=== PATIENT | female | born 1995 | race Hispanic/Latino ===

== ENCOUNTER 2018-11-24 19:20 | Emergency (ER) | payer MEDICAID, OTHER | END 2018-11-24 20:16 | disposition left against medical advice (07) | LOC: EDH 19:20 | DX: R03.0 Elevated blood-pressure reading, without diagnosis of hypertension (principal); J45.909 Unspecified asthma, uncomplicated ==

== ENCOUNTER 2022-05-09 23:46 | Emergency (ER) | payer OTHER ==
[~2022-05-09] VITALS: Ht 152.4 cm; Wt 89.1 kg
[2022-05-10] MEDS ORDERED: LACTATED RINGERS 1000ML 1,000 ML IV ONE (00:30)
[2022-05-10 00:36] LABS: APPEARANCE,URINE CLEAR (CLEAR); BILIRUBIN,URINE NEGATIVE (NEGATIVE); COLOR,URINE YELLOW (YELLOW); GLUCOSE, URINE (UA) NEGATIVE (NEGATIVE); KETONES,URINE NEGATIVE (NEGATIVE); LEUKOCYTE ESTERASE ,URINE NEGATIVE Leu/uL (NEGATIVE); NITRATE,URINE NEGATIVE (NEGATIVE); OCCULT BLOOD,URINE NEGATIVE (NEGATIVE); PROTEIN,URINE 10 mg/dL (NEGATIVE); UROBILINOGEN,URINE 3 mg/dL (0.2-1.0)
[2022-05-10 00:40] LABS: BASOPHILS % (AUTO) 0.3 % (0.0-5.0); EOSINOPHILS % (AUTO) 1.2 % (0.0-8.0); HEMATOCRIT 33.9 % (36-48); LYMPHOCYTES % (AUTO) 32.4 % (21.0-51.0); MEAN CORPUSCULAR HEMOGLOBIN 23.9 pg (27.0-33.0); MEAN CORPUSCULAR HGB CONC 31.3 g/dL (32.0-36.0); MEAN CORPUSCULAR VOLUME 76.4 fL (79-99); MONOCYTES % (AUTO) 6.7 % (3.0-13.0); NEUTROPHILS % (AUTO) 59.2 % (40.0-77.0); PLATELET COUNT (AUTO) 348 K/uL (130-400); RED BLOOD CELL COUNT(AUTO) 4.44 MIL/uL (4.00-5.50); RED CELL DISTRIBUTION WIDTH 14.7 % (11.0-15.5); WHITE BLOOD COUNT (AUTO) 11.9 K/uL (4.8-10.8)
[2022-05-10 00:43] LABS: CREATININE 0.6 mg/dL (0.5-1.5); POTASSIUM 4.4 mmol/L (3.5-5.1)
[2022-05-10 01:09] LABS: ALBUMIN 3.5 g/dL (3.5-5.0); TOTAL PROTEIN, SERUM 7.3 g/dL (6.0-8.3)
[2022-05-10] MEDS ORDERED: LIDOCAINE HCL 2% VISCOUS 15 ML UDCUP PO ONE (02:30)
[2022-05-10] MEDS ORDERED: MAG/ALUM/SIMETH 30 ML UDCUP PO ONE (02:30)
[2022-05-10] MEDS ORDERED: ONDA-104 PO (02:37)
[2022-05-10 02:57] VITALS: BP 126/76
== END 2022-05-10 03:06 | disposition home or self-care (01) ==
LOC: EDH 23:46
DX: O20.0 Threatened abortion (principal); K80.20 Calculus of gallbladder without cholecystitis without obstruction; Z3A.08 8 weeks gestation of pregnancy; Z98.890 Other specified postprocedural states
CPT/HCPCS: 99284; 80053; 84702; 83690; 85025; 86850; 86900; 86901; 81003; 36415; 96360; 76705; 76801; J7120

== ENCOUNTER 2022-06-07 14:55 | Emergency (ER) | payer OTHER ==
[~2022-06-07] VITALS: Ht 172.7 cm; Wt 85.7 kg
[~2022-06-07 14:55] MED LIST: ONDA-104 PO
[2022-06-07] MEDS ORDERED: 0.9%NACL 1000ML 1,000 ML IV ONE (15:30)
[2022-06-07 15:46] LABS: BASOPHILS % (AUTO) 0.2 % (0.0-5.0); EOSINOPHILS % (AUTO) 0.8 % (0.0-8.0); HEMATOCRIT 33.4 % (36-48); LYMPHOCYTES % (AUTO) 14.7 % (21.0-51.0); MEAN CORPUSCULAR HEMOGLOBIN 24.5 pg (27.0-33.0); MEAN CORPUSCULAR HGB CONC 32.6 g/dL (32.0-36.0); MEAN CORPUSCULAR VOLUME 75.2 fL (79-99); NEUTROPHILS % (AUTO) 78.9 % (40.0-77.0); PLATELET COUNT (AUTO) 283 K/uL (130-400); RED BLOOD CELL COUNT(AUTO) 4.44 MIL/uL (4.00-5.50); RED CELL DISTRIBUTION WIDTH 14.8 % (11.0-15.5); WHITE BLOOD COUNT (AUTO) 12.4 K/uL (4.8-10.8)
[2022-06-07 15:55] LABS: CREATININE 0.5 mg/dL (0.5-1.5); POTASSIUM 3.6 mmol/L (3.5-5.1)
[2022-06-07 16:21] LABS: ALBUMIN 3.1 g/dL (3.5-5.0); TOTAL PROTEIN, SERUM 7.4 g/dL (6.0-8.3)
[2022-06-07 17:13] LABS: APPEARANCE,URINE CLOUDY (CLEAR); BILIRUBIN,URINE NEGATIVE (NEGATIVE); COLOR,URINE YELLOW (YELLOW); GLUCOSE, URINE (UA) NEGATIVE (NEGATIVE); KETONES,URINE NEGATIVE (NEGATIVE); LEUKOCYTE ESTERASE ,URINE 500 Leu/uL (NEGATIVE); NITRATE,URINE NEGATIVE (NEGATIVE); OCCULT BLOOD,URINE NEGATIVE (NEGATIVE); PROTEIN,URINE 20 mg/dL (NEGATIVE); UROBILINOGEN,URINE 0.2 mg/dL (0.2-1.0)
[2022-06-07 17:15] LABS: HCG,QUALITATIVE URINE POSITIVE (NEGATIVE)
[2022-06-07 17:17] LABS: BACTERIA,URINE RARE /HPF (None Seen); MUCUS,URINE FEW LPF (None Seen); SQUAMOUS EPITHELIAL CELL,UR FEW /HPF (0-2); WBC,URINE 51-100 /HPF (0-1); YEAST,URINE BUDDING RARE /HPF (None Seen)
[2022-06-07 17:45] VITALS: BP 124/72
== END 2022-06-07 17:55 | disposition home or self-care (01) ==
LOC: EDH 14:55
DX: O20.0 Threatened abortion (principal); Z79.899 Other long term (current) drug therapy; Z3A.12 12 weeks gestation of pregnancy
CPT/HCPCS: 99284; 96360; 76801; 80053; 84702; 85025; 87088; 87797; 86701; 87390; 87486; 81001; 81025; 36415; J7030

== ENCOUNTER 2022-07-13 21:03 | Emergency (ER) | payer OTHER ==
[~2022-07-13] VITALS: Ht 152.4 cm; Wt 84.4 kg
[2022-07-13 21:44] LABS: BASOPHILS % (AUTO) 0.2 % (0.0-5.0); EOSINOPHILS % (AUTO) 0.8 % (0.0-8.0); HEMATOCRIT 32.8 % (36-48); LYMPHOCYTES % (AUTO) 21.3 % (21.0-51.0); MEAN CORPUSCULAR HEMOGLOBIN 24.3 pg (27.0-33.0); MEAN CORPUSCULAR HGB CONC 31.7 g/dL (32.0-36.0); MEAN CORPUSCULAR VOLUME 76.6 fL (79-99); NEUTROPHILS % (AUTO) 71.4 % (40.0-77.0); PLATELET COUNT (AUTO) 327 K/uL (130-400); RED BLOOD CELL COUNT(AUTO) 4.28 MIL/uL (4.00-5.50); RED CELL DISTRIBUTION WIDTH 14.7 % (11.0-15.5); WHITE BLOOD COUNT (AUTO) 10.2 K/uL (4.8-10.8)
[2022-07-13 21:56] LABS: APPEARANCE,URINE CLOUDY (CLEAR); BILIRUBIN,URINE NEGATIVE (NEGATIVE); COLOR,URINE YELLOW (YELLOW); GLUCOSE, URINE (UA) NEGATIVE (NEGATIVE); KETONES,URINE 5 mg/dL (NEGATIVE); LEUKOCYTE ESTERASE ,URINE NEGATIVE Leu/uL (NEGATIVE); NITRATE,URINE NEGATIVE (NEGATIVE); OCCULT BLOOD,URINE NEGATIVE (NEGATIVE); PH,URINE 6.5 (5.0-8.0); PROTEIN,URINE 20 mg/dL (NEGATIVE); UROBILINOGEN,URINE 3 mg/dL (0.2-1.0)
[2022-07-13 22:03] LABS: BACTERIA,URINE FEW /HPF (None Seen); MUCUS,URINE MOD LPF (None Seen); SQUAMOUS EPITHELIAL CELL,UR MOD /HPF (0-2)
[2022-07-13 22:20] LABS: ALBUMIN 2.8 g/dL (3.5-5.0); CREATININE 0.6 mg/dL (0.5-1.5); POTASSIUM 3.5 mmol/L (3.5-5.1); TOTAL PROTEIN, SERUM 7.6 g/dL (6.0-8.3)
[2022-07-13] MEDS ORDERED: ACETAMINOPHEN 325 MG TAB PO ONE (23:30)
[2022-07-13 23:58] VITALS: BP 95/65
== END 2022-07-14 | disposition home or self-care (01) ==
LOC: EDH 21:03
DX: O20.0 Threatened abortion (principal); R10.9 Unspecified abdominal pain; Z3A.18 18 weeks gestation of pregnancy; Z59.01 Sheltered homelessness
CPT/HCPCS: 36415; 76805; 80053; 81001; 84702; 84703; 85025; 86900; 86901

== ENCOUNTER 2022-10-23 16:05 | Emergency (ER) | payer OTHER ==
[~2022-10-23] VITALS: Ht 152.4 cm; Wt 87.1 kg
[2022-10-23 16:39] LABS: BASOPHILS % (AUTO) 0.2 % (0.0-5.0); EOSINOPHILS % (AUTO) 0.6 % (0.0-8.0); LYMPHOCYTES % (AUTO) 24.9 % (21.0-51.0); MONOCYTES % (AUTO) 5.8 % (3.0-13.0); NEUTROPHILS % (AUTO) 67.9 % (40.0-77.0); PLATELET COUNT (AUTO) 345 K/uL (130-400); RED CELL DISTRIBUTION WIDTH 15.3 % (11.0-15.5); WHITE BLOOD COUNT (AUTO) 8.9 K/uL (4.8-10.8)
[2022-10-23 16:46] LABS: CREATININE 0.6 mg/dL (0.5-1.5); POTASSIUM 3.8 mmol/L (3.5-5.1)
[2022-10-23 16:51] LABS: ALBUMIN 2.5 g/dL (3.5-5.0); TOTAL PROTEIN, SERUM 7.3 g/dL (6.0-8.3)
[2022-10-23 17:00] LABS: APPEARANCE,URINE CLOUDY (CLEAR); BILIRUBIN,URINE NEGATIVE (NEGATIVE); COLOR,URINE YELLOW (YELLOW); GLUCOSE, URINE (UA) NEGATIVE (NEGATIVE); KETONES,URINE NEGATIVE (NEGATIVE); LEUKOCYTE ESTERASE ,URINE 75 Leu/uL (NEGATIVE); NITRATE,URINE NEGATIVE (NEGATIVE); OCCULT BLOOD,URINE NEGATIVE (NEGATIVE); PROTEIN,URINE 20 mg/dL (NEGATIVE); UROBILINOGEN,URINE 0.2 mg/dL (0.2-1.0)
[2022-10-23 17:12] LABS: BACTERIA,URINE MOD /HPF (None Seen); MUCUS,URINE MANY LPF (None Seen); SQUAMOUS EPITHELIAL CELL,UR MOD /HPF (0-2)
[2022-10-23] MEDS ORDERED: POTASSIUM CHLORIDE 10% ELIXIR 20 MEQ/15 ML UDCUP PO PRN (17:30)
[2022-10-23] MEDS ORDERED: POTASSIUM CHLORIDE 20MEQ/100ML 100 ML IV PRN (17:30)
[2022-10-23] MEDS ORDERED: KCL 20 MEQ ERTAB PO PRN (17:30)
[2022-10-23] MEDS ORDERED: MAGNESIUM 2GM PREMIX 50ML 50 ML IV PRN (17:30)
[2022-10-23] MEDS ORDERED: ACETAMINOPHEN 500 MG TABLET PO ONE (19:30)
[2022-10-23] MEDS: CEFTRIAXONE 500MG VIAL IVPB SCH ×2 (19:30→19:40)
[2022-10-23] MEDS ORDERED: CEPH500B PO (19:32)
[2022-10-23] MEDS ORDERED: CEFTRIAXONE 500MG VIAL IM STA (19:46)
[2022-10-23 20:13] VITALS: BP 122/78
== END 2022-10-23 20:14 | disposition home or self-care (01) ==
LOC: EDH 16:05
DX: O23.43 Unspecified infection of urinary tract in pregnancy, third trimester (principal); N39.0 Urinary tract infection, site not specified; O99.013 Anemia complicating pregnancy, third trimester; O99.513 Diseases of the respiratory system complicating pregnancy, third trimester; J45.909 Unspecified asthma, uncomplicated; Z3A.33 33 weeks gestation of pregnancy
CPT/HCPCS: 99283; 80053; 85025; 86850; 86900; 86901; 87088; 81001; 36415; 96372; J0696 ×2

== ENCOUNTER 2022-11-25 07:44 | Observation (INO) | payer OTHER ==
[~2022-11-25] VITALS: Ht 152.4 cm; Wt 90.7 kg
[~2022-11-25 07:44] MED LIST changes: +CEPH500B PO
[2022-11-25 07:48] VITALS: BP 118/82
[2022-11-25 09:15] LABS: AMPHET/METH SCREEN,URINE NEGATIVE (NEGATIVE); BARBITURATE SCREEN, URINE NEGATIVE (NEGATIVE); BENZODIAZEPINES SCREEN,URINE NEGATIVE (NEGATIVE); CANNABINOID SCREEN,URINE NEGATIVE (NEGATIVE); COCAINE SCREEN,URINE NEGATIVE (NEGATIVE); OPIATE SCREEN,URINE NEGATIVE (NEGATIVE); PHENCYCLIDINE SCREEN,URINE NEGATIVE (NEGATIVE)
[2022-11-25 09:23] LABS: APPEARANCE,URINE CLEAR (CLEAR); BILIRUBIN,URINE NEGATIVE (NEGATIVE); COLOR,URINE YELLOW (YELLOW); GLUCOSE, URINE (UA) NEGATIVE (NEGATIVE); KETONES,URINE NEGATIVE (NEGATIVE); LEUKOCYTE ESTERASE ,URINE 75 Leu/uL (NEGATIVE); NITRATE,URINE NEGATIVE (NEGATIVE); OCCULT BLOOD,URINE NEGATIVE (NEGATIVE); PROTEIN,URINE 30 mg/dL (NEGATIVE); UROBILINOGEN,URINE 3 mg/dL (0.2-1.0)
[2022-11-25 09:59] LABS: BACTERIA,URINE RARE /HPF (None Seen); MUCUS,URINE FEW LPF (None Seen); SQUAMOUS EPITHELIAL CELL,UR FEW /HPF (0-2); TRANSITIONAL EPI CELLS,URINE RARE /HPF (None Seen)
== END 2022-11-25 10:22 | disposition home or self-care (01) ==
LOC: EDH 07:44 → LDH 07:59
PROVIDERS: ADMIT Internal Medicine; ATTEND Internal Medicine
DX: O26.893 Other specified pregnancy related conditions, third trimester (principal); R10.9 Unspecified abdominal pain; O36.8130 Decreased fetal movements, third trimester, not applicable or unspecified; Z3A.37 37 weeks gestation of pregnancy; Z79.899 Other long term (current) drug therapy
CPT/HCPCS: 59025; 80305; 87088; 81001; G0378 ×2; G0379

== ENCOUNTER 2022-12-11 15:57 | Observation (INO) | payer OTHER ==
[~2022-12-11] VITALS: Ht 152.4 cm; Wt 89.4 kg
[2022-12-11 16:00] VITALS: BP 132/81
[2022-12-11 16:41] LABS: APPEARANCE,URINE CLOUDY (CLEAR); BILIRUBIN,URINE NEGATIVE (NEGATIVE); COLOR,URINE YELLOW (YELLOW); GLUCOSE, URINE (UA) NEGATIVE (NEGATIVE); KETONES,URINE NEGATIVE (NEGATIVE); LEUKOCYTE ESTERASE ,URINE 500 Leu/uL (NEGATIVE); NITRATE,URINE NEGATIVE (NEGATIVE); PROTEIN,URINE 30 mg/dL (NEGATIVE)
[2022-12-11 17:45] LABS: BACTERIA,URINE RARE /HPF (None Seen); MUCUS,URINE FEW LPF (None Seen); SQUAMOUS EPITHELIAL CELL,UR MOD /HPF (0-2)
[2022-12-11 17:46] LABS: OCCULT BLOOD,URINE SMALL (NEGATIVE)
== END 2022-12-11 17:50 | disposition home or self-care (01) ==
LOC: EDH 15:57 → LDH 15:58 → EDH 16:07
PROVIDERS: ADMIT Obstetrics & Gynecology; ATTEND Obstetrics & Gynecology
DX: O26.893 Other specified pregnancy related conditions, third trimester (principal); R10.9 Unspecified abdominal pain; Z3A.39 39 weeks gestation of pregnancy
CPT/HCPCS: 87088; 81001; G0378 ×2; G0379

== ENCOUNTER 2022-12-16 12:40 | Observation (INO) | payer OTHER ==
[~2022-12-16] VITALS: Ht 152.4 cm; Wt 89.8 kg
[2022-12-16 12:43] VITALS: BP 117/76
[2022-12-16 13:59] LABS: APPEARANCE,URINE CLEAR (CLEAR); BILIRUBIN,URINE NEGATIVE (NEGATIVE); COLOR,URINE YELLOW (YELLOW); GLUCOSE, URINE (UA) NEGATIVE (NEGATIVE); KETONES,URINE NEGATIVE (NEGATIVE); LEUKOCYTE ESTERASE ,URINE 500 Leu/uL (NEGATIVE); NITRATE,URINE NEGATIVE (NEGATIVE); OCCULT BLOOD,URINE NEGATIVE (NEGATIVE); PROTEIN,URINE 10 mg/dL (NEGATIVE); UROBILINOGEN,URINE 0.2 mg/dL (0.2-1.0)
[2022-12-16 14:06] LABS: BACTERIA,URINE RARE /HPF (None Seen); MUCUS,URINE RARE LPF (None Seen); SQUAMOUS EPITHELIAL CELL,UR MOD /HPF (0-2); TRANSITIONAL EPI CELLS,URINE RARE /HPF (None Seen)
[2022-12-16 21:47] LABS: AMPHET/METH SCREEN,URINE NEGATIVE (NEGATIVE); BARBITURATE SCREEN, URINE NEGATIVE (NEGATIVE); BENZODIAZEPINES SCREEN,URINE NEGATIVE (NEGATIVE); CANNABINOID SCREEN,URINE NEGATIVE (NEGATIVE); COCAINE SCREEN,URINE NEGATIVE (NEGATIVE); OPIATE SCREEN,URINE NEGATIVE (NEGATIVE); PHENCYCLIDINE SCREEN,URINE NEGATIVE (NEGATIVE)
== END 2022-12-16 14:40 | disposition home or self-care (01) ==
LOC: EDH 12:40 → LDH 12:41 → EDH 12:46
PROVIDERS: ADMIT Internal Medicine; ATTEND Internal Medicine
DX: O26.893 Other specified pregnancy related conditions, third trimester (principal); R10.9 Unspecified abdominal pain; O62.9 Abnormality of forces of labor, unspecified; Z3A.40 40 weeks gestation of pregnancy; Z79.899 Other long term (current) drug therapy; Z98.890 Other specified postprocedural states
CPT/HCPCS: 59025; 80305; 87088; 81001; G0378 ×2; G0379

== ENCOUNTER 2023-08-29 22:53 | Emergency (ER) | payer MEDICAID, OTHER ==
[~2023-08-29] VITALS: Ht 149.9 cm; Wt 97.1 kg
[2023-08-29] MEDS: KETOROLAC 30MG VIAL (30MG/ML) IVP ONE (23:32)
[2023-08-29] MEDS: LACTATED RINGERS 1000ML 1,000 ML IV ONE (23:33)
[2023-08-29] MEDS: DICYCLOMINE 20MG (10MG/ML) AMP IM STA (23:33)
[2023-08-30 00:10] LABS: BASOPHILS # (AUTO) 0.04 K/uL (0.00-0.20); BASOPHILS % (AUTO) 0.3 % (0.0-5.0); EOSINOPHILS # (AUTO) 0.05 K/uL (0.00-0.70); EOSINOPHILS % (AUTO) 0.4 % (0.0-8.0); IMMATURE GRANULOCYTE ABSOLUTE 0.05 K/uL (0-1); LYMPHOCYTES # (AUTO) 1.9 K/uL (1.0-4.8); LYMPHOCYTES % (AUTO) 14.4 % (21.0-51.0); MEAN CORPUSCULAR HEMOGLOBIN 20.7 pg (27.0-33.0); MEAN CORPUSCULAR HGB CONC 29.7 g/dL (32.0-36.0); MEAN CORPUSCULAR VOLUME 69.8 fL (79-99); MONOCYTES # (AUTO) 0.6 K/uL (0.1-1.0); MONOCYTES % (AUTO) 4.7 % (3.0-13.0); NEUTROPHILS # (AUTO) 10.7 K/uL (1.8-7.7); NEUTROPHILS % (AUTO) 79.8 % (40.0-77.0); PLATELET COUNT (AUTO) 335 K/uL (130-400); RED BLOOD CELL COUNT(AUTO) 4.87 MIL/uL (4.00-5.50); RED CELL DISTRIBUTION WIDTH 17.2 % (11.0-15.5); WHITE BLOOD COUNT (AUTO) 13.4 K/uL (4.8-10.8)
[2023-08-30 00:21] LABS: CREATININE 0.6 mg/dL (0.5-1.5); POTASSIUM 4.6 mmol/L (3.5-5.1)
[2023-08-30 00:26] LABS: ALBUMIN 3.5 g/dL (3.5-5.0); BILIRUBIN,TOTAL 1.3 mg/dL (0.2-1.0); TOTAL PROTEIN, SERUM 7.8 g/dL (6.0-8.3)
[2023-08-30 02:55] LABS: INR <= 0.93 (0.85-1.15); PROTHROMBIN TIME 10.8 SEC (9.6-11.6)
[2023-08-30 02:56] LABS: PARTIAL THROMBOPLASTIN TIME 24.1 SEC (26.3-35.5)
[2023-08-30] MEDS ORDERED: IOHEXOL 350 MG/ML 100ML INFUS..BTL IV ONE (03:10)
[2023-08-30] MEDS ORDERED: AMOX1TAB16 PO (04:22)
[2023-08-30] MEDS ORDERED: OMEP40CA21 PO (04:22)
[2023-08-30] MEDS ORDERED: IBUP-1493 PO (04:23)
[2023-08-30 04:24] LABS: APPEARANCE,URINE CLEAR (CLEAR); BILIRUBIN,URINE NEGATIVE (NEGATIVE); COLOR,URINE YELLOW (YELLOW); GLUCOSE, URINE (UA) NEGATIVE (NEGATIVE); KETONES,URINE NEGATIVE (NEGATIVE); LEUKOCYTE ESTERASE ,URINE NEGATIVE Leu/uL (NEGATIVE); NITRATE,URINE NEGATIVE (NEGATIVE); OCCULT BLOOD,URINE NEGATIVE (NEGATIVE); PH,URINE 6.5 (5.0-8.0); PROTEIN,URINE 50 mg/dL (NEGATIVE)
[2023-08-30] MEDS ORDERED: DICY20TA2 PO (04:28)
[2023-08-30 04:32] LABS: BACTERIA,URINE RARE /HPF (None Seen); MUCUS,URINE FEW LPF (None Seen); SQUAMOUS EPITHELIAL CELL,UR FEW /HPF (0-2)
[2023-08-30 05:00] VITALS: BP 122/75; PULSE 65; RESP 18; O2SAT 98
== END 2023-08-30 05:39 | disposition home or self-care (01) ==
LOC: EDH 22:53
DX: K80.20 Calculus of gallbladder without cholecystitis without obstruction (principal); Z79.899 Other long term (current) drug therapy; Z98.890 Other specified postprocedural states
CPT/HCPCS: 99285; 74177; 96361; 96374; 76705; 71045; 82150; 82550; 84484; 80053; 83690; 85025; 85610; 85730; 81001 ×2; 81025; 36415; 93005; 96372; J7120; J1885; J0500; Q9967

== ENCOUNTER 2023-10-03 20:46 | Emergency (ER) | payer MEDICAID ==
[~2023-10-03] VITALS: Ht 149.9 cm; Wt 95.3 kg
[~2023-10-03 20:46] MED LIST changes: +AMOX1TAB16 PO; +DICY20TA2 PO; +OMEP40CA21 PO
[2023-10-03 21:08] LABS: APPEARANCE,URINE CLEAR (CLEAR); BILIRUBIN,URINE NEGATIVE (NEGATIVE); COLOR,URINE LIGHT-YELLOW (YELLOW); GLUCOSE, URINE (UA) NEGATIVE (NEGATIVE); KETONES,URINE NEGATIVE (NEGATIVE); LEUKOCYTE ESTERASE ,URINE 25 Leu/uL (NEGATIVE); NITRATE,URINE NEGATIVE (NEGATIVE); OCCULT BLOOD,URINE NEGATIVE (NEGATIVE); PH,URINE 5.5 (5.0-8.0); PROTEIN,URINE NEGATIVE (NEGATIVE); UROBILINOGEN,URINE 0.2 mg/dL (0.2-1.0)
[2023-10-03 21:09] LABS: ADD UA MICROSCOPIC YES; HCG,QUALITATIVE URINE NEGATIVE (NEGATIVE)
[2023-10-03 21:11] LABS: BACTERIA,URINE MANY /HPF (None Seen); MUCUS,URINE RARE LPF (None Seen); SQUAMOUS EPITHELIAL CELL,UR FEW /HPF (0-2)
[2023-10-03] MEDS ORDERED: DOXY-252 PO (21:39)
[2023-10-03] MEDS ORDERED: PHEN-776 PO (21:39)
[2023-10-03] MEDS: ACETAMINOPHEN 500 MG TABLET PO ONE (21:58)
[2023-10-03] MEDS: CEFTRIAXONE 1G VIAL IM ONE (21:59)
[2023-10-03] MEDS: PHENAZOPYRIDINE HCL 200 MG TABLET PO ONE (21:59)
[2023-10-03] MEDS: LIDOCAINE HCL 1% 20 ML VIAL ONE (21:59)
[2023-10-03] MEDS: AZITHROMYCIN 250 MG TABLET PO ONE (21:59)
[2023-10-03 22:14] VITALS: BP 163/72; PULSE 88; RESP 16; O2SAT 100
== END 2023-10-03 22:18 | disposition home or self-care (01) ==
LOC: EDH 20:46
DX: O26.891 Other specified pregnancy related conditions, first trimester (principal); A74.9 Chlamydial infection, unspecified; Z20.2 Contact with and (suspected) exposure to infections with a predominantly sexual mode of transmission; N30.01 Acute cystitis with hematuria; Z3A.01 Less than 8 weeks gestation of pregnancy; Z79.899 Other long term (current) drug therapy
CPT/HCPCS: 99284; 87088; 87797; 87486; 81001; 81025; 96372; J0696

== ENCOUNTER 2023-10-10 01:58 | Inpatient (IN) | payer MEDICAID ==
[~2023-10-10] VITALS: Ht 149.9 cm; Wt 99.8 kg
[~2023-10-10 01:58] MED LIST changes: +DOXY-252 PO; +PHEN-776 PO
[2023-10-10 02:24] LABS: BASOPHILS # (AUTO) 0.03 K/uL (0.00-0.20); BASOPHILS % (AUTO) 0.3 % (0.0-5.0); EOSINOPHILS # (AUTO) 0.06 K/uL (0.00-0.70); EOSINOPHILS % (AUTO) 0.6 % (0.0-8.0); HEMATOCRIT 33.8 % (36-48); IMMATURE GRANULOCYTE ABSOLUTE 0.03 K/uL (0-1); LYMPHOCYTES # (AUTO) 2.9 K/uL (1.0-4.8); LYMPHOCYTES % (AUTO) 30.4 % (21.0-51.0); MEAN CORPUSCULAR HEMOGLOBIN 21.3 pg (27.0-33.0); MEAN CORPUSCULAR HGB CONC 30.2 g/dL (32.0-36.0); MEAN CORPUSCULAR VOLUME 70.4 fL (79-99); MONOCYTES # (AUTO) 0.4 K/uL (0.1-1.0); MONOCYTES % (AUTO) 3.9 % (3.0-13.0); NEUTROPHILS % (AUTO) 64.5 % (40.0-77.0); PLATELET COUNT (AUTO) 395 K/uL (130-400); WHITE BLOOD COUNT (AUTO) 9.4 K/uL (4.8-10.8)
[2023-10-10 02:33] LABS: CREATININE 0.6 mg/dL (0.5-1.0); POTASSIUM 3.8 mmol/L (3.5-5.1)
[2023-10-10] MEDS: KETOROLAC 30MG VIAL (30MG/ML) IVP ONE (02:35)
[2023-10-10] MEDS: ONDANSETRON 4MG TABLET PO ONE (02:35)
[2023-10-10] MEDS: 0.9%NACL 1000ML 1,000 ML IV ONE (02:36)
[2023-10-10 02:37] LABS: ALBUMIN 3.5 g/dL (3.5-5.0); BILIRUBIN,TOTAL 1.6 mg/dL (0.2-1.0); TOTAL PROTEIN, SERUM 8.4 g/dL (6.0-8.3)
[2023-10-10 02:56] LABS: APPEARANCE,URINE CLOUDY (CLEAR); BILIRUBIN,URINE NEGATIVE (NEGATIVE); COLOR,URINE YELLOW (YELLOW); GLUCOSE, URINE (UA) NEGATIVE (NEGATIVE); KETONES,URINE NEGATIVE (NEGATIVE); LEUKOCYTE ESTERASE ,URINE 25 Leu/uL (NEGATIVE); NITRATE,URINE NEGATIVE (NEGATIVE); OCCULT BLOOD,URINE LARGE (NEGATIVE); PH,URINE 5.5 (5.0-8.0); PROTEIN,URINE 50 mg/dL (NEGATIVE); UROBILINOGEN,URINE 0.2 mg/dL (0.2-1.0)
[2023-10-10 03:15] LABS: ADD UA MICROSCOPIC YES
[2023-10-10 03:20] LABS: MUCUS,URINE RARE LPF (None Seen); RBC,URINE TNTC /HPF (0-1); SQUAMOUS EPITHELIAL CELL,UR RARE /HPF (0-2); YEAST,URINE BUDDING MANY /HPF (None Seen); YEAST,URINE HYPHAE RARE /HPF (None Seen)
[2023-10-10] MEDS: DICYCLOMINE 20MG (10MG/ML) AMP IM ONE (03:27)
[2023-10-10] MEDS ORDERED: CEFTRIAXONE 1G VIAL 1 GM in 0.9%NACL 50ML 50 ML IV SCH (05:30)
[2023-10-10] MEDS ORDERED: ONDANSETRON 4MG INJ IV PRN (05:30)
[2023-10-10 06:00] VITALS: BP 124/73; PULSE 79; RESP 14
[2023-10-10 06:48] LABS: BASOPHILS # (AUTO) 0.02 K/uL (0.00-0.20); BASOPHILS % (AUTO) 0.2 % (0.0-5.0); EOSINOPHILS # (AUTO) 0.06 K/uL (0.00-0.70); EOSINOPHILS % (AUTO) 0.7 % (0.0-8.0); HEMATOCRIT 29.9 % (36-48); IMMATURE GRANULOCYTE ABSOLUTE 0.01 K/uL (0-1); LYMPHOCYTES % (AUTO) 36.9 % (21.0-51.0); MEAN CORPUSCULAR HGB CONC 30.1 g/dL (32.0-36.0); MEAN CORPUSCULAR VOLUME 69.9 fL (79-99); MONOCYTES # (AUTO) 0.5 K/uL (0.1-1.0); NEUTROPHILS # (AUTO) 4.6 K/uL (1.8-7.7); NEUTROPHILS % (AUTO) 56.1 % (40.0-77.0); PLATELET COUNT (AUTO) 384 K/uL (130-400); RED BLOOD CELL COUNT(AUTO) 4.28 MIL/uL (4.00-5.50); RED CELL DISTRIBUTION WIDTH 15.9 % (11.0-15.5); WHITE BLOOD COUNT (AUTO) 8.2 K/uL (4.8-10.8)
[2023-10-10 06:56] LABS: HEMOGLOBIN A1C 5.7 % (4.0-6.0)
[2023-10-10 07:02] LABS: ALBUMIN 3.1 g/dL (3.5-5.0); BILIRUBIN,TOTAL 1.6 mg/dL (0.2-1.0); CREATININE 0.6 mg/dL (0.5-1.0); MAGNESIUM 1.9 mg/dL (1.80-2.40); POTASSIUM 3.6 mmol/L (3.5-5.1); TOTAL PROTEIN, SERUM 7.4 g/dL (6.0-8.3)
[2023-10-10 07:49] VITALS: BP 96/53; PULSE 66; RESP 16
[2023-10-10 08:00] VITALS: O2SAT 100
[2023-10-10] MEDS: CEFTRIAXONE 1G VIAL IVPB SCH (09:07)
[2023-10-10] MEDS: FAMOTIDINE 20MG VIAL IV SCH (09:07)
[2023-10-10] MEDS: 0.9%NACL 1000ML 1,000 ML IV SCH (09:08)
[2023-10-10] MEDS: ZOSYN 3.375GM +NS 50ML IV SCH (11:33)
[2023-10-10 11:50] VITALS: BP 105/53; PULSE 55; RESP 14
[2023-10-10] MEDS ORDERED: DIATR MEGLU/DIATRIZOATE SODIUM 30 ML BOTTLE ONE (12:51)
[2023-10-10] MEDS ORDERED: IOHEXOL-350 75 ML VIAL IV ONE (15:57)
[2023-10-10 16:00] VITALS: BP 116/66; PULSE 60; RESP 16
[2023-10-10] MEDS ORDERED: POTASSIUM CHLORIDE 20MEQ/100ML 100 ML IV PRN (18:30)
[2023-10-10] MEDS: KCL 20 MEQ ERTAB PO ONE (18:31)
[2023-10-10 20:00] VITALS: BP 108/72; PULSE 74; RESP 18; O2SAT 98
[2023-10-10] MEDS: POTASSIUM CHLORIDE 10% ELIXIR 20 MEQ/15 ML UDCUP PO PRN (21:07)
[2023-10-10] MEDS: KETOROLAC 15MG/ML VIAL (15MG/ML) IV PRN (21:07)
[2023-10-10] MEDS: KCL 20 MEQ ERTAB PO PRN (21:08)
[2023-10-11] VITALS (27 sets, daily range): BP systolic 91–124; BP diastolic 42–77; PULSE 53–95; RESP 14–24; O2SAT 97–98
[2023-10-11 05:08] LABS: HEMATOCRIT 26.7 % (36-48); MEAN CORPUSCULAR HEMOGLOBIN 21.5 pg (27.0-33.0); MEAN CORPUSCULAR HGB CONC 30.7 g/dL (32.0-36.0); MEAN CORPUSCULAR VOLUME 70.1 fL (79-99); RED BLOOD CELL COUNT(AUTO) 3.81 MIL/uL (4.00-5.50); WHITE BLOOD COUNT (AUTO) 7.4 K/uL (4.8-10.8)
[2023-10-11 05:21] LABS: INR <= 0.93 (0.85-1.15)
[2023-10-11 05:23] LABS: PARTIAL THROMBOPLASTIN TIME 28.8 SEC (26.3-35.5)
[2023-10-11 05:24] LABS: ALBUMIN 2.8 g/dL (3.5-5.0); BILIRUBIN,DIRECT 0.3 mg/dL (0.0-0.3); BILIRUBIN,TOTAL 1.8 mg/dL (0.2-1.0); CREATININE 0.6 mg/dL (0.5-1.0); POTASSIUM 3.8 mmol/L (3.5-5.1); TOTAL PROTEIN, SERUM 6.7 g/dL (6.0-8.3)
[2023-10-11] MEDS ORDERED: PROPOFOL 10 MG/ML 20ML VIAL IV ONE ×2 (12:03→12:07)
[2023-10-11] MEDS: PANTOPRAZOLE 40 MG TAB DR PO SCH (19:52)
[2023-10-11] MEDS ORDERED: DOXY100C5 PO (23:17)
[2023-10-12] VITALS (9 sets, daily range): BP systolic 107–137; BP diastolic 60–96; PULSE 55–80; RESP 17–22; O2SAT 96–99
[2023-10-12 05:28] LABS: BASOPHILS # (AUTO) 0.03 K/uL (0.00-0.20); BASOPHILS % (AUTO) 0.4 % (0.0-5.0); EOSINOPHILS # (AUTO) 0.09 K/uL (0.00-0.70); EOSINOPHILS % (AUTO) 1.1 % (0.0-8.0); HEMATOCRIT 28.1 % (36-48); IMMATURE GRANULOCYTE ABSOLUTE 0.02 K/uL (0-1); LYMPHOCYTES # (AUTO) 3.1 K/uL (1.0-4.8); LYMPHOCYTES % (AUTO) 36.9 % (21.0-51.0); MEAN CORPUSCULAR HEMOGLOBIN 21.1 pg (27.0-33.0); MEAN CORPUSCULAR HGB CONC 29.5 g/dL (32.0-36.0); MEAN CORPUSCULAR VOLUME 71.5 fL (79-99); MONOCYTES # (AUTO) 0.5 K/uL (0.1-1.0); MONOCYTES % (AUTO) 5.5 % (3.0-13.0); NEUTROPHILS # (AUTO) 4.8 K/uL (1.8-7.7); NEUTROPHILS % (AUTO) 55.9 % (40.0-77.0); PLATELET COUNT (AUTO) 361 K/uL (130-400); RED BLOOD CELL COUNT(AUTO) 3.93 MIL/uL (4.00-5.50); WHITE BLOOD COUNT (AUTO) 8.5 K/uL (4.8-10.8)
[2023-10-12 05:44] LABS: ALBUMIN 2.8 g/dL (3.5-5.0); BILIRUBIN,TOTAL 1.2 mg/dL (0.2-1.0); CREATININE 0.6 mg/dL (0.5-1.0); POTASSIUM 3.9 mmol/L (3.5-5.1); TOTAL PROTEIN, SERUM 6.9 g/dL (6.0-8.3)
[2023-10-12] MEDS: MORPHINE 2 MG SYG IVP PRN (19:47)
[2023-10-13] VITALS (26 sets, daily range): BP systolic 103–142; BP diastolic 57–87; PULSE 69–104; RESP 17–22; O2SAT 97–98
[2023-10-13 05:24] LABS: HEMATOCRIT 29.9 % (36-48); MEAN CORPUSCULAR HEMOGLOBIN 20.9 pg (27.0-33.0); MEAN CORPUSCULAR HGB CONC 30.4 g/dL (32.0-36.0); MEAN CORPUSCULAR VOLUME 68.7 fL (79-99); RED BLOOD CELL COUNT(AUTO) 4.35 MIL/uL (4.00-5.50); WHITE BLOOD COUNT (AUTO) 6.8 K/uL (4.8-10.8)
[2023-10-13 06:14] LABS: ALBUMIN 3.1 g/dL (3.5-5.0); BILIRUBIN,TOTAL 1.6 mg/dL (0.2-1.0); CREATININE 0.7 mg/dL (0.5-1.0); POTASSIUM 3.6 mmol/L (3.5-5.1); TOTAL PROTEIN, SERUM 7.5 g/dL (6.0-8.3)
[2023-10-13] MEDS ORDERED: MIDAZOLAM HCL 1 MG/ML 2ML VIAL ONE (07:33)
[2023-10-13] MEDS ORDERED: DEXAMETHASONE SOD PHOSPHATE 10MG/ML 1ML VIAL ONE (07:33)
[2023-10-13] MEDS ORDERED: LIDOCAINE PF 100MG/5ML (2%) SYRINGE 5ML ONE (07:33)
[2023-10-13] MEDS ORDERED: SUCCINYLCHOLINE CHLORIDE 20 MG/ML 10 ML VIAL ONE (07:34)
[2023-10-13] MEDS ORDERED: ROCURONIUM BROMIDE 10MG/1ML 5ML VL ONE (07:34)
[2023-10-13] MEDS ORDERED: GLYCOPYRROLATE 0.2 MG/ML 5 ML VIAL ONE (07:34)
[2023-10-13] MEDS ORDERED: FENTANYL CITRATE PF 50 MCG/1 ML 2ML VIAL ONE ×2 (07:34→09:14)
[2023-10-13] MEDS ORDERED: NEOSTIGMINE METHYLSULFATE 1MG/ML IV ONE (07:34)
[2023-10-13] MEDS ORDERED: ONDANSETRON 4MG INJ ONE (07:34)
[2023-10-13] MEDS ORDERED: PROPOFOL 10 MG/ML 20ML VIAL IV ONE (07:34)
[2023-10-13] MEDS ORDERED: BUPIVACAINE/PF 0.25% 30ML VIAL IJ ONE (07:53)
[2023-10-13] MEDS ORDERED: CEFAZOLIN SODIUM 1 GM VIAL ONE (07:53)
[2023-10-13] MEDS ORDERED: LIDOCAINE 1%-EPI 1:100,000 20 ML VIAL ONE (07:54)
[2023-10-13] MEDS: LACTATED RINGERS 1000ML 1,000 ML IV ONE (08:57)
[2023-10-13] MEDS: BUPIVACAINE/PF 0.25% 30ML VIAL IJ ONE (09:40)
[2023-10-13] MEDS ORDERED: MEPERIDINE-PF 25 MG/ML SYG ONE (10:02)
[2023-10-13] MEDS: LACTATED RINGERS 1000ML 1,000 ML IV SCH (10:30)
[2023-10-13] MEDS: SUGAMMADEX SODIUM 200 MG/2 ML VIAL IV ONE (10:31)
[2023-10-13] MEDS: ONDANSETRON 4MG INJ ONE (11:10)
[2023-10-13] MEDS: MEPERIDINE-PF 25 MG/ML SYG ONE (11:10)
[2023-10-13] MEDS: OXYCODONE/ACETAMIN 5/325MG TAB PO PRN (13:03)
[2023-10-13] MEDS: HYDROMORPHONE 1 MG INJ IVP PRN (14:35)
[2023-10-14] VITALS: BP 116/78; PULSE 55; RESP 18
[2023-10-14 04:00] VITALS: BP 124/79; PULSE 80; RESP 19
[2023-10-14 05:12] LABS: HEMATOCRIT 28.9 % (36-48); IMMATURE GRANULOCYTE ABSOLUTE 0.01 K/uL (0-1); LYMPHOCYTES # (AUTO) 1.2 K/uL (1.0-4.8); LYMPHOCYTES % (AUTO) 17.3 % (21.0-51.0); MEAN CORPUSCULAR HEMOGLOBIN 21.4 pg (27.0-33.0); MEAN CORPUSCULAR HGB CONC 30.1 g/dL (32.0-36.0); MONOCYTES # (AUTO) 0.7 K/uL (0.1-1.0); MONOCYTES % (AUTO) 9.2 % (3.0-13.0); NEUTROPHILS # (AUTO) 5.2 K/uL (1.8-7.7); NEUTROPHILS % (AUTO) 73.4 % (40.0-77.0); PLATELET COUNT (AUTO) 320 K/uL (130-400); RED BLOOD CELL COUNT(AUTO) 4.07 MIL/uL (4.00-5.50); RED CELL DISTRIBUTION WIDTH 16.1 % (11.0-15.5); WHITE BLOOD COUNT (AUTO) 7.1 K/uL (4.8-10.8)
[2023-10-14 05:31] LABS: ALBUMIN 2.9 g/dL (3.5-5.0); BILIRUBIN,TOTAL 1.2 mg/dL (0.2-1.0); CREATININE 0.6 mg/dL (0.5-1.0); POTASSIUM 3.9 mmol/L (3.5-5.1); TOTAL PROTEIN, SERUM 7.1 g/dL (6.0-8.3)
[2023-10-14 08:00] VITALS: BP 121/77; PULSE 67; RESP 18
[2023-10-14] MEDS ORDERED: CEPH500C2 PO (08:25)
[2023-10-14] MEDS ORDERED: PANT40TA54 PO (10:42)
[2023-10-14 12:00] VITALS: BP 140/65; PULSE 86; RESP 18
[2023-10-14 12:30] VITALS: O2SAT 98
== END 2023-10-14 16:30 | disposition home or self-care (01) | DRG 263 ==
LOC: EDH 01:58 → EDHIP 05:06 → OBSVTOIN 05:06 → 3AH 05:22
PROVIDERS: ADMIT Hospitalist; ATTEND Hospitalist
PROC: 0DB78ZX Excision of Stomach, Pylorus, Via Natural or Artificial Opening Endoscopic, Diagnostic (ICD-10-PCS; 2023-10-11)
PROC: 0FT44ZZ Resection of Gallbladder, Percutaneous Endoscopic Approach (ICD-10-PCS; principal; 2023-10-13 09:18)
DX: K80.20 Calculus of gallbladder without cholecystitis without obstruction (principal); D63.8 Anemia in other chronic diseases classified elsewhere; K29.70 Gastritis, unspecified, without bleeding; E66.01 Morbid (severe) obesity due to excess calories; F41.9 Anxiety disorder, unspecified; N39.0 Urinary tract infection, site not specified; K31.89 Other diseases of stomach and duodenum; F32.A Depression, unspecified; Z68.41 Body mass index [BMI] 40.0-44.9, adult; Z79.899 Other long term (current) drug therapy
CPT/HCPCS: 36415; 43239; 74178; 76705; 78226; 80048; 80053; 80061; 80076; 81001; 83036; 83690; 83735; 84702; 84703; 85025; 85027; 85610; 85730; 87088; 96372; 96374; A4606; A9537; G0378; J0330; J0500; J0690; J0696; J1100; J1170; J1885; J2001; J2175; J2250; J2270; J2405; J2543; J2704; J2710; J3010; J3490; J7030; J7120; Q0162; Q9963; Q9967; A4216; A4222; A4223; A4600; A4620; A4649; A4930; A6206; C1769; J0665

== ENCOUNTER 2023-11-02 22:32 | Emergency (ER) | payer MEDICAID ==
[~2023-11-02] VITALS: Ht 147.3 cm; Wt 98.9 kg
[~2023-11-02 22:32] MED LIST changes: -AMOX1TAB16 PO; -CEPH500B PO; +CEPH500C2 PO; -DICY20TA2 PO; -DOXY-252 PO; -OMEP40CA21 PO; -ONDA-104 PO; +PANT40TA54 PO; -PHEN-776 PO
[2023-11-02 22:55] LABS: APPEARANCE,URINE CLOUDY (CLEAR); BILIRUBIN,URINE NEGATIVE (NEGATIVE); COLOR,URINE LIGHT-YELLOW (YELLOW); GLUCOSE, URINE (UA) NEGATIVE (NEGATIVE); KETONES,URINE NEGATIVE (NEGATIVE); LEUKOCYTE ESTERASE ,URINE 25 Leu/uL (NEGATIVE); NITRATE,URINE NEGATIVE (NEGATIVE); OCCULT BLOOD,URINE NEGATIVE (NEGATIVE); PH,URINE 6.5 (5.0-8.0); PROTEIN,URINE NEGATIVE (NEGATIVE); UROBILINOGEN,URINE 0.2 mg/dL (0.2-1.0)
[2023-11-02 23:02] LABS: ADD UA MICROSCOPIC YES
[2023-11-02 23:03] LABS: BACTERIA,URINE Rare /HPF (None Seen); MUCUS,URINE Rare LPF (None Seen); SQUAMOUS EPITHELIAL CELL,UR Moderate /HPF (0-2)
[2023-11-02] MEDS ORDERED: NITR100C PO (23:14)
[2023-11-02] MEDS ORDERED: FLUC200T PO (23:14)
[2023-11-02 23:36] VITALS: BP 137/74; PULSE 90; RESP 18; O2SAT 100
== END 2023-11-02 23:37 | disposition home or self-care (01) ==
LOC: EDH 22:32
DX: N39.0 Urinary tract infection, site not specified (principal); B37.31 Acute candidiasis of vulva and vagina; Z79.899 Other long term (current) drug therapy; Z79.2 Long term (current) use of antibiotics; Z98.84 Bariatric surgery status; Z90.49 Acquired absence of other specified parts of digestive tract
CPT/HCPCS: 81001; 81025

== ENCOUNTER 2024-07-04 23:43 | Emergency (ER) | payer MEDICAID ==
[~2024-07-04] VITALS: Ht 147.3 cm; Wt 98.2 kg
[~2024-07-04 23:43] MED LIST changes: -CEPH500C2 PO; +FERR-72 PO; +FLUO-341 PO; -PANT40TA54 PO; +TRAZ-253 PO
[2024-07-04 23:44] VITALS: BP 133/88; PULSE 89; RESP 16; TEMP 97.5
--- NOTE | 2024-07-04 23:45 | NUR ---
UA CUP PROVIDED
[2024-07-05 00:07] LABS: APPEARANCE,URINE CLOUDY (CLEAR); BILIRUBIN,URINE NEGATIVE (NEGATIVE); COLOR,URINE LIGHT-ORANGE (YELLOW); GLUCOSE, URINE (UA) NEGATIVE (NEGATIVE); KETONES,URINE NEGATIVE (NEGATIVE); LEUKOCYTE ESTERASE ,URINE 75 Leu/uL (NEGATIVE); NITRATE,URINE NEGATIVE (NEGATIVE); OCCULT BLOOD,URINE LARGE (NEGATIVE); PH,URINE 5.5 (5.0-8.0); PROTEIN,URINE 20 mg/dL (NEGATIVE); UROBILINOGEN,URINE 0.2 mg/dL (0.2-1.0)
[2024-07-05 00:08] LABS: ADD UA MICROSCOPIC YES
[2024-07-05 00:09] LABS: BACTERIA,URINE MOD /HPF (None Seen); MUCUS,URINE RARE LPF (None Seen); RBC,URINE TNTC /HPF (0-1); SQUAMOUS EPITHELIAL CELL,UR MOD /HPF (0-2); WBC,URINE 51-100 /HPF (0-1); YEAST,URINE BUDDING FEW /HPF (None Seen)
--- NOTE | 2024-07-05 00:42 | ERN ---
General Chief Complaint: Vaginal Problems/Bleeding Stated Complaint: VAGINAL BLEEDING Time Seen by MD: 23:46 History of Present Illness Initial Comments 28-year-old female who presents for vaginal bleeding, dizziness, dyspnea. Patient reports she has a history of anemia. For the last three days she has had heavy vaginal bleeding with clots. She reports some mild cramping type discomfort. She reports a few palpitations and some dyspnea on exertion earlier today. She is concerned she may be anemic. She denies medical history Surgical history: Gastric sleeve, cholecystectomy: Allergies: Coded Allergies: No Known Allergies (Unverified Allergy, Unknown, 12/16/22) Home Meds Active Scripts Ferrous Sulfate (Ferrous Sulfate) 325 Mg (65 Mg Iron) Tablet, 1 TAB PO DAILY for 10 Days, #10 TAB 0 Refills Prov:ROBBIE PADRON MD 05/18/24 Reported Medications Fluoxetine HCl (Fluoxetine HCl) 10 Mg Capsule, 1 CAP PO DAILY for depressive disorder 05/17/24 Trazodone HCl (Desyrel) 50 Mg Tab, 1 TAB PO HS 05/17/24 Past Medical History Past Medical History: Asthma, Unknown, Other Medical History Other: GASTRIC SLEEVE Past Surgical History: Cholecystectomy Surgical History Other: GASTRIC SLEEVE Family History Family History: Negative Social History Social History: Negative, Lives with family Female( History) History: Not Applicable LMP: Jul 02, 2024 : 1 Para: 1 Aborts: 0 ROS Dictation CONSTITUTIONAL: Dizziness weakness fatigue HEAD/FACE: No signs of trauma. EENT: No eye pain, no blurred vision, no tearing, no double vision, no ear pain, no ear discharge, no nose pain, no nasal congestion, no throat pain, no t hroat swelling, no mouth pain. RESPIRATORY: Dyspnea CARDIOVASCULAR: No chest pain, no edema, no palpitations, no syncope. GASTROINTESTINAL/ABDOMINAL: No abdominal pain, no constipation, no diarrhea, no nausea, no vomiting. GENITOURINARY: Vaginal bleeding MUSCULOSKELETAL: No back pain, no gout, no joint pain, no joint swelling, no muscle pain, no muscle stiffness, no neck pain. INTEGUMENTARY: No change in color, no change in hair/nails, no dryness, no lesion, no lumps, no rash. NEUROLOGICAL/PSYCH: No anxiety, not depressed, no emotional problem, no headache, no numbness, no pre-existing deficit, no history of seizures, no tremors, no weakness. HEMATOLOGIC/LYMPHATIC: Not anemic, no history of blood clots, no apparent bleeding, no bruising, glands not swollen. All Systems Negative, Except as Noted. Physical Exam Physical Exam Dictation VITAL SIGNS: Reviewed. GENERAL APPEARANCE: Alert, oriented x3, no acute distress, obese. HEAD AND FACE: Non-traumatic. EYES: PERRL, pink conjunctivas, eyelid no trauma, anterior chamber clear. EARS: Pinnas intact and no signs of trauma or erythema. Ear canals clear and no discharge. TMs no erythema. NOSE: No discharge, no bleeding. OROPHARYNX: Mouth normal, teeth no caries, tongue pink. Pharynx clear, no erythema. Tonsils no exudates, no abscesses noted. Mucous membrane moist. NECK: Supple, non-tender, no thyromegaly, no masses, no JVD, no bruits. BREAST: Deferred. CHEST: No tenderness, no crepitus, no paradoxical movement, no retractions. LUNGS: Clear, well-ventilated, symmetric, no rales, no wheezing, no rhonchi, no stridor, good breath sounds bilaterally. HEART: Regular rate, regular rhythm, no murmur, no gallops. VASCULAR: No peripheral edema. ABDOMEN: Soft, positive bowel sounds, nondistended, no guarding, nontender, no rebound, no masses no hepatomegaly, no splenomegaly, no Evans's sign, no hernias. RECTAL: Deferred. GENITAL: Deferred. NEUROLOGICAL: Normal speech, gross motor function intact, gross sensory function intact. MUSCULOSKELETAL: Neck nontender, full range of motion, back nontender, full range of motion. EXTREMITIES: Nontender, full range of motion. SKIN: Color pink, dry, no turgor, no rash, no lacerations, no abrasions, no contusions. LYMPHATICS: Deferred. Results Laboratory and Microbiology Lab and Micro Result Laboratory Tests Test 07/04/24 23:51 07/05/24 00:23 Urine Color LIGHT-ORANGE (YELLOW) Urine Appearance CLOUDY (CLEAR) H Urine pH 5.5 (5.0-8.0) Urine Specific [place] 1.020 (1.001-1.031) Urine Protein 20 mg/dL (NEGATIVE) H Urine Glucose (UA) NEGATIVE mg/dL (NEGATIVE) Urine Ketones NEGATIVE mg/dL (NEGATIVE) Urine Occult Blood LARGE (NEGATIVE) H Urine Nitrate NEGATIVE (NEGATIVE) Urine Bilirubin NEGATIVE mg/dL (NEGATIVE) Urine Urobilinogen 0.2 mg/dL (0.2-1.0) Urine Leukocyte Esterase 75 Holli/uL (NEGATIVE) H Urine RBC TNTC /HPF (0-1) H Urine WBC 51-100 /HPF (0-1) H Urine Squamous Epithelial Cells MOD /HPF (0-2) Urine Bacteria MOD /HPF (None Seen) Urine Yeast FEW /HPF (None Seen) White Blood Count 11.3 K/uL (4.8-10.8) H Red Blood Count 4.94 MIL/uL (4.00-5.50) Hemoglobin 9.6 g/dL (12.0-16.0) L Hematocrit 33.4 % (36-48) L Mean Corpuscular Volume 67.6 fL (79-99) L Mean Corpuscular Hemoglobin 19.4 pg (27.0-33.0) L Mean Corpuscular Hemoglobin Concent 28.7 g/dL (32.0-36.0) L Red Cell Distribution Width 17.6 % (11.0-15.5) H Platelet Count 501 K/uL (130-400) H Mean Platelet Volume 9.3 fL (7.5-10.5) Immature Granulocyte % (Auto) 0.2 % (0-1) Neutrophils (%) (Auto) 60.5 % (40.0-77.0) Lymphocytes (%) (Auto) 32.4 % (21.0-51.0) Monocytes (%) (Auto) 5.2 % (3.0-13.0) Eosinophils (%) (Auto) 1.3 % (0.0-8.0) Basophils (%) (Auto) 0.4 % (0.0-5.0) Neutrophils # (Auto) 6.8 K/uL (1.8-7.7) Lymphocytes # (Auto) 3.6 K/uL (1.0-4.8) Monocytes # (Auto) 0.6 K/uL (0.1-1.0) Eosinophils # (Auto) 0.15 K/uL (0.00-0.70) Basophils # (Auto) 0.04 K/uL (0.00-0.20) Absolute Immature Granulocyte (auto 0.02 K/uL (0-1) Nucleated Red Blood Cells 0.0 % (0.0-0.19) Sodium Level 141 mmol/L (136-145) Potassium Level 5.0 mmol/L (3.5-5.1) Chloride Level 107 mmol/L (101-111) Carbon Dioxide Level 27 mmol/L (21-32) Blood Urea Nitrogen 11 mg/dL (7-18) Creatinine 0.5 mg/dL (0.5-1.0) Glomerular Filtration Rate Calc 133 mL/min (>90) Random Glucose 98 mg/dL (70-105) Total Calcium 8.9 mg/dL (8.5-10.1) Serum Test, Qualitative NEGATIVE (NEGATIVE) MDM CC: Heavy vaginal bleeding, palpitations dyspnea Historian: Patient Comorbidities: Obesity, gastric sleeve, cholecystectomy, C-sections Differential diagnosis: Anemia, electrolyte abnormality, other. Vital signs are stable, remained stable in the ER Labs: She has a microcytic anemia hemoglobin of 9.6. Chemistry panel is unremarkable. Serum and she was negative. Urinalysis shows RBCs so weak esterase otherwise unremarkable. No imaging indicated Symptoms are consistent with heavy period, she does have an anemia but this is unlikely because her symptoms. We will start her on iron supplementation with a min gynecologic follow up. ED Course Orders Procedure Category Date Status Time Cbc With Differential LAB 07/04/24 In Process 23:48 Basic Metabolic Panel LAB 07/04/24 Complete 23:48 Type And Screen BBK 07/04/24 Complete 23:48 Urinalysis Profile LAB 07/04/24 Complete 23:48 Testing, LAB 07/04/24 Complete Serum Hcg 23:48 Culture Urine DEIRDRE 07/05/24 In Process 00:08 Vital Signs Date Time Temp Pulse Resp B/P (MAP) Pulse Ox O2 Delivery O2 Flow Rate FiO2 07/04/24 23:44 97.5 89 16 133/88 100 Room Air DX & DISP Disposition: Discharge Departure Impression: Primary Impression: Microcytic anemia Condition: Stable Scripts Ferrous Gluconate (Ferrous Gluconate) 240 Mg (27 Mg Iron) Tablet 1 TAB PO DAILY for 30 Days, #30 TAB 0 Refills Prov: MARGARITA ESTRADA DO 07/05/24 Additional Instructions: You have a mild anemia (hemoglobin 9.6). This may be causing your symptoms. I have prescribed iron supplementation. i recommend that you take this for the next month. I recommend that you follow up with your panel beater for further evaluation and treatment. Return to the emergency department as needed. Referrals: DANNY BARRERA (PCP) MARGARITA ESTRADA DO Jul 05, 2024 00:42
[2024-07-05 00:45] LABS: CREATININE 0.5 mg/dL (0.5-1.0)
[2024-07-05 00:50] LABS: BASOPHILS # (AUTO) 0.04 K/uL (0.00-0.20); BASOPHILS % (AUTO) 0.4 % (0.0-5.0); EOSINOPHILS # (AUTO) 0.15 K/uL (0.00-0.70); EOSINOPHILS % (AUTO) 1.3 % (0.0-8.0); HEMATOCRIT 33.4 % (36-48); IMMATURE GRANULOCYTE ABSOLUTE 0.02 K/uL (0-1); LYMPHOCYTES # (AUTO) 3.6 K/uL (1.0-4.8); LYMPHOCYTES % (AUTO) 32.4 % (21.0-51.0); MEAN CORPUSCULAR HEMOGLOBIN 19.4 pg (27.0-33.0); MEAN CORPUSCULAR HGB CONC 28.7 g/dL (32.0-36.0); MEAN CORPUSCULAR VOLUME 67.6 fL (79-99); MONOCYTES # (AUTO) 0.6 K/uL (0.1-1.0); MONOCYTES % (AUTO) 5.2 % (3.0-13.0); NEUTROPHILS # (AUTO) 6.8 K/uL (1.8-7.7); NEUTROPHILS % (AUTO) 60.5 % (40.0-77.0); PLATELET COUNT (AUTO) 501 K/uL (130-400); RED BLOOD CELL COUNT(AUTO) 4.94 MIL/uL (4.00-5.50); RED CELL DISTRIBUTION WIDTH 17.6 % (11.0-15.5); WHITE BLOOD COUNT (AUTO) 11.3 K/uL (4.8-10.8)
[2024-07-05] MEDS ORDERED: FERR240T6 PO (01:25)
== END 2024-07-05 01:34 | disposition home or self-care (01) ==
LOC: EDH 23:43
DX: D50.9 Iron deficiency anemia, unspecified (principal); E66.9 Obesity, unspecified; J45.909 Unspecified asthma, uncomplicated; Z79.899 Other long term (current) drug therapy; Z90.49 Acquired absence of other specified parts of digestive tract
CPT/HCPCS: 36415; 80048; 81001; 84703; 85025; 86850; 86900; 86901; 87086; 87186; 99283